=== PATIENT | female | born 2000 | race Caucasian/White ===

== ENCOUNTER 2022-08-25 12:35 | Emergency (ER) | payer OTHER, SELFPAY ==
--- NOTE | ~2022-08-25 | XR_ITS ---
XR foot LT min 3V DATE: 08/25/2022 13:21 INDICATION: Fall. Fifth metatarsal pain and swelling TECHNIQUE: 4 views COMPARISON: None FINDINGS: There is soft tissue swelling of the dorsum of the forefoot. No fracture, dislocation, periosteal reaction or bone destruction is detected. IMPRESSION: Soft tissue swelling Reviewed, dictated and finalized at location B. IMPRESSION: Soft tissue swelling
--- NOTE | 2022-08-25 12:46 | ED.LOWEXIN ---
HPI - Extremity Injury (Lower) General Stated Complaint: lt foot injury Time Seen by Provider: 08/25/22 13:33 Source: patient and RN notes reviewed Mode of arrival: ambulatory Limitations: no limitations History of Present Illness HPI Narrative: 22-year-old female presents with concern for left foot pain and swelling. She reports she tripped yesterday, rolling the foot. Reports dorsal foot pain and swelling. She denies decreased sensation or strength. MD complaint: foot injury Related Data Home Medications Medication Instructions Recorded Confirmed norgestimate-ethinyl estradiol 1 tablet PO DAILY 08/25/22 08/25/22 0.18 mg/0.215mg/0.25mg-35 mcg(28)tablet (Tri-Estarylla) Allergies Allergy/AdvReac Type Severity Reaction Status Date / Time amoxicillin [From Amoxil] Allergy Rash Verified 08/25/22 12:54 Review of Systems Review of Systems: CONSTITUTIONAL: Denies malaise, chills, sweats, or fever. SKIN: Denies rash or itching, open skin, laceration, abrasion, redness, warmth MUSCULOSKELETAL: Reports left foot pain and swelling NEUROLOGIC: Denies numbness, weakness All systems reviewed & are unremarkable except as noted in HPI and below PMFSH Comments At time of signature, agree with nursing past medical, surgical, social and family history. There is no relevant family history pertinent to the presenting complaint Exam Narrative: GENERAL: Well-appearing, well-nourished, and in no acute distress. HEAD: Normocephalic, atraumatic. EYES: PERRLA, conjunctivae clear NECK: Supple. CHEST: Speaks in full sentences. No respiratory distress. HEART: Regular rate and rhythm. Normal and equal peripheral pulses. EXTREMITIES: Left ankle, foot, digits have normal strength and sensation, grossly normal range of motion. Mild dorsal edema, no ecchymosis. 5/5 strength with ankle in digit flexion and extension. Normal sensation with sensitivity to light touch and pain. Dorsal foot tenderness. No open wounds, no skin tenting, no devitalized tissue or atrophy, no trophic changes, no obvious deformity, alignment normal, nearby joints and structures intact. Distal pulses palpable and equal bilaterally, skin warm, dry, pink. Capillary refill less than 3 seconds. SKIN: Warm, dry, no rash. NEURO: Alert and oriented x3. PSYCH: Normal mood and affect Course Course Emergency Course: Patient is aware of diagnosis, understands and agrees to treatment plan. Anticipatory guidance given. Patient agrees to follow-up as directed and is aware of reasons to seek care at the emergency department. Portions of this record may have been created with voice recognition software Level of Care: Express Care Visit Vital Signs Vital signs: Reviewed. MDM - Extremity Injury (Lower) MDM Narrative Medical decision making narrative: Patients injury and pain is consistent with musculoskeletal etiology. No signs of neurological or vascular compromise on exam. Compartments and tissues are soft without signs of compartment syndrome. Pain is felt appropriate for further evaluation on an outpatient basis. Imaging Data Radiologist's impression: XR foot LT min 3V DATE: 08/25/2022 13:21 INDICATION: Fall. Fifth metatarsal pain and swelling? TECHNIQUE: 4 views? COMPARISON: None? FINDINGS: There is soft tissue swelling of the dorsum of the forefoot. No fracture, dislocation, periosteal reaction or bone destruction is detected.? IMPRESSION: Soft tissue swelling? Critical Care Time Critical Care Time Critical Care Time: No Discharge Plan Discharge Clinical Impression: Ankle sprain Patient Disposition: Home, Self-Care Condition: Stable Instructions: Ankle Sprain (ED) Additional Instructions: Avoid activities that cause pain until the pain subsides. Ice to the area 20-30 minutes 4-6 times a day Elevate above heart Elastic wrap as directed for comfort for the next 5-7 days Tylenol for lesser pain Ibuprofen regularly for the next
[2022-08-25 12:53] VITALS: BP 114/62; PULSE 75; RESP 18; TEMP 37.3; O2SAT 100
== END 2022-08-25 13:50 | disposition home or self-care (01) ==
PROVIDERS: Emergency Provider Nurse Practitioner
DX: S93.402A Sprain of unspecified ligament of left ankle, initial encounter (principal); X50.9XXA Other and unspecified overexertion or strenuous movements or postures, initial encounter
CPT/HCPCS: 73630; 99213; G0463